=== PATIENT | male | born 1980 | race Hispanic/Latino ===

== ENCOUNTER 2022-02-26 11:26 | Emergency (ER) | payer OTHER, SELFPAY ==
[2022-02-26 11:37] VITALS: BP 175/100; PULSE 83; RESP 16; TEMP 36.6; O2SAT 99
--- NOTE | 2022-02-26 12:00 | ED.SKABFB ---
HPI - Skin/Abscess/Foreign Bdy General Chief complaint: Skin/Abscess/Foreign Body Stated complaint: Rash Time Seen by Provider: 02/26/22 11:40 Source: patient Mode of arrival: ambulatory Limitations: no limitations History of Present Illness HPI narrative: Mr. Rivera is a 41-year-old male patient presenting to the clinic today with complaints of possible poison emilee to his arms, legs, and chest. He denies any rash to his face or groin. He reports he was out in the walking his dog on Sunday and his dog got into poison emilee. Related Data Allergies Allergy/AdvReac Type Severity Reaction Status Date / Time No Known Allergies Allergy Verified 02/26/22 12:04 Review of Systems Review of Systems: Pertinent positives per HPI. Patient denies any fever, chills, headache, visual changes, dizziness, cough, runny nose, sore throat, shortness of breath, chest pain, palpitations, nausea, vomiting, diarrhea, constipation, abdominal pain, or any urinary issues. PMFSH Comments At the time of my signature, I reviewed and agree with the nursing past medical, surgical, social, and family history. There is no relevant family history pertinent to the patient complaint. Exam Narrative: General: Well-developed, well nourished, in no apparent distress Head: Normocephalic, atraumatic. Cardio: Regular rate and rhythm, s1 and s2 normal, no murmur appreciated. Resp: Clear to auscultation bilaterally, no rhonchi, rales, wheezing or rubs. Integumentary: [place], warm, and dry, intact without lesion, Red raised blistery rash to the right forearm, bilateral legs, and mid anterior chest Course Course Emergency Course: Portions of this record may have been created with voice recognition software. Level of Care: Express Care Visit Vital Signs Vital signs: Vital Signs Temperature 36.6 C 02/26/22 11:37 Pulse Rate 83 02/26/22 11:37 Respiratory Rate 16 02/26/22 11:37 Blood Pressure 175/100 H 02/26/22 11:37 Pulse Oximetry 99 02/26/22 11:37 Oxygen Delivery Room Air 02/26/22 11:37 Temperature 36.6 C 02/26/22 11:37 Pulse Rate 83 02/26/22 11:37 Respiratory Rate 16 02/26/22 11:37 Blood Pressure 175/100 H 10/30/22 11:37 Pulse Oximetry 99 02/26/22 11:37 Oxygen Delivery Room Air 02/26/22 11:37 Vital signs reviewed MDM - Skin/Abscess/Foreign Bdy MDM Narrative Medical decision making narrative: at the time of the patient is resting comfortably on the exam table. I suspect patient has contact dermatitis due to plants. Supportive measures were discussed with the patient he voiced understanding of discharge instructions. Prescriptions for prednisone and triamcinolone cream was sent to the pharmacy. Differential Diagnosis Differential diagnosis: Likely abscess of skin or subcutaneous tissue, eczema and contact dermatitis Discharge Plan Discharge Clinical Impression: Contact dermatitis Patient Disposition: Home, Self-Care Condition: Stable Instructions: Antibiotic Form, Contact Dermatitis (ED), Poison Emilee (ED) Additional Instructions: take prednisone and apply triamcinolone cream as directed avoid hot showers avoid scratching may apply cool compresses to the affected areas to help alleviate itching may take Benadryl 25-50 mg every 6 hours as needed for itching may apply calamine lotion follow-up with your PCP in 3-5 days if symptoms persist or sooner if they worsen Prescriptions: New prednisone 20 mg tablet 40 mg PO DAILY 5 Days Qty: 10 0RF triamcinolone acetonide 0.1 % cream 1 applic topical BID 7 Days Qty: 30 0RF Follow-up/Referrals: PHYSICIAN,ASSOCIATE PROFESSOR OF FORESTRY [Primary Care Provider] - Time of Disposition: 12:04 Quality NIHSS Nursing Documentation ED NIHSS nursing documentation: reviewed/agree
== END 2022-02-26 12:06 | disposition home or self-care (01) ==
PROVIDERS: Emergency Provider Nurse Practitioner Family
DX: L25.9 Unspecified contact dermatitis, unspecified cause (principal)
CPT/HCPCS: 99203; G0463

== ENCOUNTER 2023-12-03 15:31 | Emergency (ER) | payer OTHER, SELFPAY ==
[2023-12-03 15:39] VITALS: BP 141/90; PULSE 85; RESP 16; TEMP 36.5; O2SAT 99
--- NOTE | 2023-12-03 16:02 | ED.SKABFB ---
HPI - Skin/Abscess/Foreign Bdy General Chief complaint: Skin/Abscess/Foreign Body Stated complaint: rash on penis Time Seen by Provider: 12/03/23 15:55 Source: patient and RN notes reviewed Mode of arrival: ambulatory Limitations: no limitations History of Present Illness HPI narrative: Patient presents today with a 2 month history of intermittent rash to his penis. States it is very itchy with some occasional white discharge from the rash. States it does appear more often when he is sweating. 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 He has tried some anti-itch cream without much relief. Related Data Home Medications Medication Instructions Recorded Confirmed hydrochlorothiazide 25 mg tablet 25 mg DIRECTED 12/03/23 12/03/23 Allergies Allergy/AdvReac Type Severity Reaction Status Date / Time No Known Allergies Allergy Verified 02/26/22 12:04 Review of Systems Review of Systems: CONSTITUTIONAL: Denies body aches, fever, chills, or sweats. EYES: Denies visual changes, redness, or discharge. ENT: Denies rhinorrhea, congestion, sore throat, or otalgia. CARDIOVASCULAR: Denies chest pain, palpitations, or edema. RESPIRATORY: Denies cough or dyspnea. GASTROINTESTINAL: Denies abdominal pain, nausea, vomiting, or diarrhea. GENITOURINARY: Denies dysuria or hematuria. SKIN: Rash MUSCULOSKELETAL: Denies back pain, joint pain, or myalgia. NEUROLOGIC: Denies headache, numbness, tingling, or weakness. PSYCH: Denies depression or anxiety. PMFSH Comments At time of signature, I have reviewed and agree with nursing past medical, surgical, social and family history unless otherwise noted. Please see nursing chart for further information. There is no relevant family history pertinent to the presenting complaint Exam Narrative: GENERAL: Well-appearing, well-nourished, and in no acute distress. HEAD: Normocephalic, atraumatic. EYES: EOMI. No redness or drainage. Conjunctivae normal. ENT: Mucous membranes pink and moist. NECK: Normal AROM. CHEST: No respiratory distress. EXTREMITIES: Normal range of motion. No edema. SKIN: Warm, dry. Capillary refill normal. Normal skin turgor. Moist erythematous, fissured rash to the head of the penis, consistent with jock itch. Patient uncircumcised. Exam chaperoned by Willy Barriga RN NEURO: No focal deficits. Alert and oriented x3. Gait steady. PSYCH: Normal affect. No signs of depression or anxiety. Course Course Level of Care: Express Care Visit Vital Signs Vital signs: Vital Signs Temperature 97.7 F 12/03/23 15:39 Pulse Rate 85 12/03/23 15:39 Respiratory Rate 16 12/03/23 15:39 Blood Pressure 141/90 H 12/03/23 15:39 Pulse Oximetry 99 12/03/23 15:39 Oxygen Delivery Room Air 12/03/23 15:39 Temperature 97.7 F 12/03/23 15:39 Pulse Rate 85 12/03/23 15:39 Respiratory Rate 16 12/03/23 15:39 Blood Pressure 141/90 H 12/03/23 15:39 Pulse Oximetry 99 12/03/23 15:39 Oxygen Delivery Room Air 12/03/23 15:39 Reviewed MDM - Skin/Abscess/Foreign Bdy MDM Narrative Medical decision making narrative: Patient's exam is consistent with tinea cruris. Instructed to treat with clotrimazole. Anticipatory guidance given. Differential Diagnosis Differential diagnosis: Likely dermatophytosis, cellulitis, eczema and contact dermatitis Critical Care Time Critical Care Time Critical Care Time: No Discharge Plan Discharge Clinical Impression: Tinea cruris Patient Disposition: Home, Self-Care Condition: Stable Instructions: Skin Yeast Infection (ED) Additional Instructions: You have been diagnosed with jock itch. Please use [id number] clotrimazole (Lotrimin) twice daily for at least 2 weeks. After showering, please make sure all skin is dry before applying ointment and putting new clothes on. You may use a psychology department chair on a cool setting if needed. Change wet underwear frequently. F
== END 2023-12-03 16:15 | disposition home or self-care (01) ==
PROVIDERS: Emergency Provider Nurse Practitioner
DX: B35.6 Tinea cruris (principal); I10 Essential (primary) hypertension
CPT/HCPCS: 99211; G0463